=== PATIENT | male | born 1965 | race Caucasian/White ===

== ENCOUNTER 2020-03-09 01:08 | Emergency (ER) | payer MEDICAID ==
[~2020-03-09] VITALS: Ht 185.4 cm; Wt 129.3 kg
--- NOTE | 2020-03-09 01:12 | NUR ---
PT TAKEN TO BED 4 VIA [facility] WITH ASSISTANCE FROM EMS.
[2020-03-09 01:17] VITALS: BP 132/90
--- NOTE | 2020-03-09 01:42 | NUR ---
Dr. Rios at bedside for MSE.
[2020-03-09 01:46] LABS: BASOPHILS # (AUTO) 0.1 K/uL (0.00-0.22); BASOPHILS % (AUTO) 0.6 % (0.0-2.0); EOSINOPHILS % (AUTO) 0.2 % (0.0-4.0); HEMATOCRIT 42.6 % (36-52); HEMOGLOBIN 13.9 g/dL (12.0-18.0); LYMPHOCYTES # (AUTO) 1.1 K/uL (2.0-11.5); LYMPHOCYTES % (AUTO) 9.6 % (20.5-51.1); MEAN CORPUSCULAR HEMOGLOBIN 28 pg (27-31); MEAN CORPUSCULAR HGB CONC 33 g/dL (33-37); MEAN CORPUSCULAR VOLUME 86.5 fL (80-94); MONOCYTES % (AUTO) 8.4 % (1.7-9.3); NEUTROPHILS # (AUTO) 9.4 K/uL (1.8-7.7); NEUTROPHILS % (AUTO) 81.2 % (42.2-75.2); PLATELET COUNT (AUTO) 143 K/uL (140-450); RED BLOOD CELL COUNT(AUTO) 4.93 MIL/uL (4.20-6.10); RED CELL DISTRIBUTION WIDTH 16.6 % (11.6-13.7); WHITE BLOOD COUNT (AUTO) 11.6 K/uL (4.8-10.8)
--- NOTE | 2020-03-09 01:51 | NUR ---
Called Poison control, no actions needed at this time due to low dose of gabapentin taken. advised for labs, and blood alcohol. If LFT elevated, start acetylceistine.if Respiratory trending down, give Narcan.
[2020-03-09] MEDS ORDERED: ALBUTEROL SULFATE/IPRATROPIU 3 ML SOL IH ONE (01:55)
--- NOTE | 2020-03-09 02:02 | NUR ---
unable to urinate at this time. gave water to encourage urination.
--- NOTE | 2020-03-09 02:04 | NUR ---
called rt for abg and breathing tx.
--- NOTE | 2020-03-09 02:08 | NUR ---
see complete assessment.
--- NOTE | 2020-03-09 02:08 | NUR ---
RT AT BEDSIDE
[2020-03-09 02:10] LABS: ALBUMIN 3.7 g/dL (3.4-5.0); ANION GAP 13.6 (8-16); ASPARTATE AMINOTRANSFERASE 61 U/L (15-37); CARBON DIOXIDE 25.9 mmol/L (21-32); CHLORIDE 108 mmol/L (98-107); CREATININE 1.5 mg/dL (0.6-1.3); GFR ARICAN-AMERICAN 62 mL/min (>90); GLUCOSE 158 mg/dL (74-106); POTASSIUM 4.5 mmol/L (3.5-5.1); SODIUM SERUM 143 mmol/L (136-145); TOTAL BILIRUBIN 0.6 mg/dL (0.0-1.0); UREA NITROGEN, BLOOD 29 mg/dL (7-18)
--- NOTE | 2020-03-09 02:17 | NUR ---
RAD AT BEDSIDE
--- NOTE | 2020-03-09 02:17 | NUR ---
FREDY SWAB COLLECTED AND SENT TO LAB
[2020-03-09 02:22] LABS: ACETAMINOPHEN < 0.5 ug/ml (10-30); SALICYLATE < 2.8 mg/dL (2.8-20.0)
--- NOTE | 2020-03-09 02:30 | NUR ---
CHANGED PTS SOILED SHEETS. PLACED PT IN CLEAN GOWN. PT ATTEMPTED TO PROVIDE UA WITHOUT SUCCESS. PT IN BED LOCKED AND IN LOWEST POSITION, SIDE RAILS X2. CARIDAC MONIOR/PULSE OX IN PLACE.
--- NOTE | 2020-03-09 03:10 | NUR ---
PT UNABLE TO PROVIDE UA. ERMD MADE AWARE, STATED NO NEED TO STRAIGHT CATH.
--- NOTE | 2020-03-09 04:03 | NUR ---
PT IS A&O X4, ABLE TO MAKE DECISIONS AND WOULD LIKE TO TAKE A TAXI HOME.
--- NOTE | 2020-03-09 04:10 | NUR ---
CALLED [facility] FOR PT RIDE HOME, STATED HE HAS FUNDS TO PAY FOR A TAXI.
--- NOTE | 2020-03-09 04:22 | NUR ---
PT UNABLE TO FIND WALLET, TAXI RIDE CANCELED. HOUSE SUP MADE AWARE THAT PT NEEDS VOUCHER FOR TAXI RIDE.
--- NOTE | 2020-03-09 04:25 | NUR ---
Attempted to call patient's sister to come crab picker patient. Patient sister did not answer the phone.
--- NOTE | 2020-03-09 04:40 | NUR ---
Spoke to [facility], patient information given a taxi voucher.
--- NOTE | 2020-03-09 04:57 | NUR ---
Adelina bazan arranged with [facility] services.
[2020-03-09 06:30] VITALS: BP 143/93
--- NOTE | 2020-03-09 06:30 | NUR ---
Patient discharged with v/s stable. Written and verbal after care instructions given and explained. Patient verbalized understanding. Ambulatory with steady gait. All questions addressed prior to discharge. Advised to follow up with PMD.
== END 2020-03-09 06:30 | disposition home or self-care (01) ==
LOC: MED 01:08
DX: T42.6X2A Poisoning by other antiepileptic and sedative-hypnotic drugs, intentional self-harm, initial encounter (principal); E87.2 Acidosis; F17.210 Nicotine dependence, cigarettes, uncomplicated; F15.10 Other stimulant abuse, uncomplicated; Z71.6 Tobacco abuse counseling; Z20.828 Contact with and (suspected) exposure to other viral communicable diseases
CPT/HCPCS: 36415; 71045; 80053; 85025; 87426; 94640; 99291; G0480; G0482; 93005

== ENCOUNTER 2020-03-29 11:12 | Emergency (ER) | payer MEDICAID ==
[~2020-03-29] VITALS: Ht 185.4 cm; Wt 104.3 kg
[2020-03-29 11:12] VITALS: BP 136/84
[2020-03-29] MEDS ORDERED: PIPERACILLIN/TAZOBACTAM 3.375 GM in DEXTROSE 5% 50 ML IV STA (14:27)
[2020-03-29] MEDS ORDERED: HYDROcodone/APAP 10/325 MG 1 TAB TAB PO STA ×2 (14:27→18:31)
[2020-03-29] MEDS ORDERED: CLINDAMYCIN 900 MG in DEXTROSE 5% 100 ML IV STA (14:27)
[2020-03-29] MEDS ORDERED: VANCOMYCIN 1,000 MG in DEXTROSE 5% 250 ML IV ONE (14:30)
--- NOTE | 2020-03-29 14:57 | NUR ---
PT TAKEN TO US VIA W/C.
[2020-03-29 15:18] LABS: BASOPHILS # (AUTO) 0.1 K/uL (0.00-0.22); BASOPHILS % (AUTO) 0.6 % (0.0-2.0); EOSINOPHILS % (AUTO) 0.1 % (0.0-4.0); HEMOGLOBIN 13.1 g/dL (12.0-18.0); LYMPHOCYTES # (AUTO) 1.8 K/uL (2.0-11.5); LYMPHOCYTES % (AUTO) 11.7 % (20.5-51.1); MEAN CORPUSCULAR HEMOGLOBIN 28 pg (27-31); MEAN CORPUSCULAR HGB CONC 33 g/dL (33-37); MEAN CORPUSCULAR VOLUME 84.8 fL (80-94); MONOCYTES # (AUTO) 1.2 K/uL (0.8-1.0); MONOCYTES % (AUTO) 7.9 % (1.7-9.3); NEUTROPHILS # (AUTO) 12.1 K/uL (1.8-7.7); NEUTROPHILS % (AUTO) 79.7 % (42.2-75.2); PLATELET COUNT (AUTO) 327 K/uL (140-450); RED BLOOD CELL COUNT(AUTO) 4.72 MIL/uL (4.20-6.10); RED CELL DISTRIBUTION WIDTH 16.4 % (11.6-13.7); WHITE BLOOD COUNT (AUTO) 15.2 K/uL (4.8-10.8)
[2020-03-29 15:30] LABS: ANION GAP 13.1 (8-16); CARBON DIOXIDE 25.7 mmol/L (21-32); CREATININE 0.8 mg/dL (0.6-1.3); POTASSIUM 3.8 mmol/L (3.5-5.1)
--- NOTE | 2020-03-29 15:30 | NUR ---
54 y/o male presented to ED c/o right leg redness & swelling from calf to thigh x 1 - 2 days . 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 Pt states he has been injecting heroin into his leg this week and may have an infection. a/o x 4. RR even and unlabored. Observed redness and swelling to rt leg. Pt states he in unable to ambulate due to the 10/10 pain. pmh: IV drug use NKA
[2020-03-29 15:36] LABS: ALBUMIN 2.4 g/dL (3.4-5.0); TOTAL BILIRUBIN 0.8 mg/dL (0.0-1.0)
[2020-03-29] MEDS ORDERED: PIPERACILLIN/TAZOBACTAM 3.375 GM VIAL IV ONE (15:36)
[2020-03-29] MEDS ORDERED: HYDROcodone/APAP 10/325 MG 1 TAB TAB ONE (15:37)
[2020-03-29 15:49] LABS: PROTHROMBIN TIME 11.3 secs (10.8-13.4)
--- NOTE | 2020-03-29 15:55 | NUR ---
pt states he has already used the restroom and is unable to provide urine sample at this time. Pt has been provided urine specimen cup for encouragement of urine sample.
--- NOTE | 2020-03-29 16:01 | NUR ---
unable to obtain IV at this time. Dr. Manzo made aware - he will insert IV via US.
--- NOTE | 2020-03-29 16:05 | NUR ---
DELAY IN IV ANTIBIOTICS DUE TO NO IV ACCESS AT THIS TIME. ALEJANDRO MADE AWARE.
--- NOTE | 2020-03-29 16:15 | NUR ---
per ERMD ORDER PICC LINE FOR PT AT THIS TIME.
--- NOTE | 2020-03-29 16:22 | NUR ---
GEOFFREY VARGAS SWAB COLLECTED AND HANDED TO LAB,.
--- NOTE | 2020-03-29 18:00 | NUR ---
PT WAS UNABLE TO PROVIDE URINE - ERMD MADE AWARE.
--- NOTE | 2020-03-29 18:03 | NUR ---
PICC LINE INSERTION HAS BEEN ORDERED - PER [facility] THERE IS A BACKUP FOR PICC LINE INSERTION. ALEJANDRO MADE AWARE.
--- NOTE | 2020-03-29 18:20 | NUR ---
DR. LOPEZ AT CHAIR SIDE FOR MEDICAL EVALUATION.
--- NOTE | 2020-03-29 18:30 | NUR ---
PER ERMD - PT WILL BE DISCHARGED NO IV ANTIBIOTICS NEEDED. ERMD WILL ORDER IM ANTIBIOTCS AND PAIN MEDICATION AND THEN PATIENT WILL BE DISCHARGED.
[2020-03-29] MEDS ORDERED: CLINDAMYCIN 600 MG/4 ML VIAL IM STA (18:31)
[2020-03-29 19:08] VITALS: BP 135/85
--- NOTE | 2020-03-29 19:08 | NUR ---
Patient discharged with v/s stable. Written and verbal after care instructions given and explained. Patient alert, oriented and verbalized understanding of instructions. Ambulatory with steady gait. All questions addressed prior to discharge. ID band removed. Patient advised to follow up with PMD. Rx of AUGMENTIN, NORCO, CLINDAMYCIN, NARCAN given. Patient educated on indication of medication including possible reaction and side effects. Opportunity to ask questions provided and answered.
--- NOTE | 2020-03-29 19:08 | NUR ---
[facility] VOUCHER PROVIDED FOR PT TRANSPORTATION
== END 2020-03-29 19:08 | disposition home or self-care (01) ==
LOC: MED 11:12
DX: L03.115 Cellulitis of right lower limb (principal); F17.290 Nicotine dependence, other tobacco product, uncomplicated; F11.90 Opioid use, unspecified, uncomplicated; Z59.0 Homelessness
CPT/HCPCS: 36415; 80053; 82550; 83605; 85025; 85610; 85651; 86140; 86886; 86900; 86901; 87040; 87426; 93971; 96372; 99291; J3490; 99284; J2543

== ENCOUNTER 2021-04-15 21:43 | Emergency (ER) | payer MEDICAID ==
[~2021-04-15] VITALS: Ht 185.4 cm; Wt 104.3 kg
[2021-04-15 21:48] VITALS: BP 156/95
--- NOTE | 2021-04-15 21:48 | NUR ---
PT TO A/[facility] IN AMBULANCE FOR BED.
--- NOTE | 2021-04-15 23:13 | NUR ---
PT OFFLOADED TO [facility]
--- NOTE | 2021-04-16 02:36 | NUR ---
PT CLEARED FOR DISCHARGE BY DR. CHAMPAGNE. AT TIME OF DISCHARGE BY NOT FOUND IN LOBBY OR OUTSIDE. PT LEFT W/O INSTRUCTIONS.
== END 2021-04-16 02:36 | disposition home or self-care (01) ==
LOC: MED 21:43
DX: T40.1X1A Poisoning by heroin, accidental (unintentional), initial encounter (principal); E11.9 Type 2 diabetes mellitus without complications; Y92.89 Other specified places as the place of occurrence of the external cause
CPT/HCPCS: 99283

== ENCOUNTER 2023-08-20 20:24 | Emergency (ER) | payer MEDICAID ==
[~2023-08-20] VITALS: Ht 172.7 cm; Wt 83.9 kg
[2023-08-20 20:32] VITALS: BP 126/85; PULSE 99; RESP 16; O2SAT 95
[2023-08-20] MEDS ORDERED: cefTRIAXone 1,000 MG VIAL ONE (21:08)
[2023-08-20] MEDS: cefTRIAXone 1,000 MG in DEXT 5% MINI-BAG PLUS 50 ML IV ONE (21:29)
[2023-08-20] MEDS: NACL 0.9% 1,000 ML IV SCH (21:30)
[2023-08-20 21:42] LABS: BASOPHILS % (AUTO) 0.2 % (0.0-2.0); EOSINOPHILS # (AUTO) 0.3 K/uL (0-0.4); EOSINOPHILS % (AUTO) 2.5 % (0.0-4.0); HEMATOCRIT 22.7 % (36-52); HEMOGLOBIN 7.5 g/dL (12.0-18.0); LYMPHOCYTES # (AUTO) 1.5 K/uL (2.0-11.5); LYMPHOCYTES % (AUTO) 14.7 % (20.5-51.1); MEAN CORPUSCULAR HEMOGLOBIN 28 pg (27-31); MEAN CORPUSCULAR HGB CONC 33 g/dL (33-37); MEAN CORPUSCULAR VOLUME 82.6 fL (80-94); MONOCYTES # (AUTO) 0.9 K/uL (0.8-1.0); NEUTROPHILS # (AUTO) 7.3 K/uL (1.8-7.7); NEUTROPHILS % (AUTO) 73.6 % (42.2-75.2); PLATELET COUNT (AUTO) 276 K/uL (140-450); RED BLOOD CELL COUNT(AUTO) 2.75 MIL/uL (4.20-6.10); RED CELL DISTRIBUTION WIDTH 20.5 % (11.6-13.7)
[2023-08-20 21:50] LABS: ANION GAP 10.7 (8-16); CALCIUM 7.5 mg/dL (8.5-10.1); CARBON DIOXIDE 22.2 mmol/L (21-32); CREATININE 1.6 mg/dL (0.6-1.3); POTASSIUM 3.9 mmol/L (3.5-5.1)
[2023-08-20 22:03] LABS: LACTIC ACID 0.9 mmol/L (0.4-2.0)
[2023-08-20 22:08] LABS: APPEARANCE,URINE SLIGHTLY HAZY (CLEAR); BILIRUBIN,URINE NEGATIVE (NEGATIVE); BLOOD, URINE 3+ (NEGATIVE); COLOR,URINE YELLOW (YELLOW); LEUKOCYTE ESTERASE ,URINE TRACE (NEGATIVE); NITRITE, URINE NEGATIVE (NEGATIVE); PROTEIN,URINE 2+ (NEGATIVE); UGLUCOSE NEGATIVE (NEGATIVE); UROBILINOGEN,URINE 0.2 EU/dL (0.2 - 1)
[2023-08-20 22:10] LABS: RBC,URINE 20-50 /HPF (0-5)
[2023-08-20 22:11] LABS: BACTERIA,URINE 1+ /HPF (None Seen); MUCUS,URINE None Seen /LPF (None Seen); SQUAMOUS EPITHELIAL CELL,UR 0-3 (FEW) /LPF (0-3 (FEW)); WBC,URINE 0-5 /HPF (0-5)
[2023-08-20 22:51] VITALS: BP 103/109; PULSE 107; RESP 20; O2SAT 96
[2023-08-21] MEDS: HALOPERIDOL IM 5 MG/ML VIAL IM ONE (00:45)
[2023-08-21] MEDS: LORazepam 1 MG TAB PO ONE (08:53)
== END 2023-08-21 12:50 | disposition left against medical advice (07) ==
LOC: MED 20:24
DX: E11.621 Type 2 diabetes mellitus with foot ulcer (principal); K43.9 Ventral hernia without obstruction or gangrene; M21.962 Unspecified acquired deformity of left lower leg; I10 Essential (primary) hypertension; Z79.4 Long term (current) use of insulin; Z79.899 Other long term (current) drug therapy
CPT/HCPCS: 36415; 80048; 81001; 83605; 83880; 84484; 85025; 87040; 87086; 93005; 96365; 96372; 99284; J0696; J1630

== ENCOUNTER 2023-10-16 18:39 | Inpatient (IN) | payer MEDICAID ==
[~2023-10-16] VITALS: Ht 177.8 cm; Wt 113.4 kg
[2023-10-16 18:56] VITALS: BP 137/82; PULSE 108; RESP 25; TEMP 101.7; TEMP 97.3; O2SAT 92
[2023-10-16 19:00] VITALS: O2SAT 92
[2023-10-16] MEDS: ACETAMINOPHEN EXTRA STRENGTH 500 MG TAB PO ONE (19:32)
[2023-10-16] MEDS: NACL 0.9% 1,000 ML IV ONE (19:51)
[2023-10-16 20:07] LABS: BASOPHILS % (AUTO) 0.1 % (0.0-2.0); HEMOGLOBIN 7.5 g/dL (12.0-18.0); LYMPHOCYTES % (AUTO) 4.9 % (20.5-51.1); MEAN CORPUSCULAR HEMOGLOBIN 26 pg (27-31); MEAN CORPUSCULAR HGB CONC 31 g/dL (33-37); MEAN CORPUSCULAR VOLUME 81.7 fL (80-94); MONOCYTES # (AUTO) 0.6 K/uL (0.8-1.0); MONOCYTES % (AUTO) 3.1 % (1.7-9.3); NEUTROPHILS # (AUTO) 18.4 K/uL (1.8-7.7); NEUTROPHILS % (AUTO) 91.9 % (42.2-75.2); PLATELET COUNT (AUTO) 146 K/uL (140-450); RED BLOOD CELL COUNT(AUTO) 2.94 MIL/uL (4.20-6.10); RED CELL DISTRIBUTION WIDTH 16.6 % (11.6-13.7)
[2023-10-16 20:15] LABS: ANION GAP 10.2 (8-16); CALCIUM 7.2 mg/dL (8.5-10.1); CREATININE 1.2 mg/dL (0.6-1.3); POTASSIUM 3.2 mmol/L (3.5-5.1)
[2023-10-16 20:20] VITALS: O2SAT 96
[2023-10-16 20:28] LABS: LACTIC ACID 2.7 mmol/L (0.4-2.0)
[2023-10-16 20:30] LABS: ALANINE AMINOTRANSFERASE 11 U/L (12-78); ALBUMIN 1.7 g/dL (3.4-5.0); ALKALINE PHOSPHATASE 95 U/L (50-136); ASPARTATE AMINOTRANSFERASE 29 U/L (15-37); BILIRUBIN,DIRECT 0.6 mg/dL (0.0-0.3); TOTAL BILIRUBIN 0.8 mg/dL (0.0-1.0)
[2023-10-16 20:31] LABS: AMPHETAMINE, URINE POSITIVE ng/ml (NEG <=1000); BARBITURATE, URINE NEGATIVE ng/ml (NEG <=200)
[2023-10-16 20:32] LABS: BENZODIAZEPINE, URINE NEGATIVE ng/mL (NEG <=200); BILIRUBIN,URINE 1+ (NEGATIVE); BLOOD, URINE 3+ (NEGATIVE); CANNABINOID, URINE POSITIVE ng/mL (NEG <=50); COCAINE, URINE NEGATIVE ng/mL (NEG <=300); COLOR,URINE YELLOW (YELLOW); LEUKOCYTE ESTERASE ,URINE TRACE (NEGATIVE); NITRITE, URINE NEGATIVE (NEGATIVE); OPIATE, URINE POSITIVE ng/mL (NEG <=2000); PHENCYCLIDINE SCREEN,URINE NEGATIVE ng/mL (NEG <=25); PROTEIN,URINE 2+ (NEGATIVE); UGLUCOSE TRACE (NEGATIVE)
[2023-10-16 20:33] LABS: APPEARANCE,URINE SLIGHTLY CLOUDY (CLEAR)
[2023-10-16 20:35] LABS: BACTERIA,URINE 2+ /HPF (None Seen); ICTOTEST POSITIVE (NEGATIVE); RBC,URINE 11-20 (MOD) /HPF (0-5); SQUAMOUS EPITHELIAL CELL,UR 0-3 (FEW) /LPF (0-3 (FEW)); WBC,URINE 0-5 /HPF (0-5)
[2023-10-16 20:36] LABS: MUCUS,URINE None Seen /LPF (None Seen)
[2023-10-16 20:52] LABS: FLU A ANTIGEN negative (NEGATIVE); FLU B ANTIGEN NEGATIVE (NEGATIVE)
[2023-10-16] MEDS ORDERED: cefTRIAXone 1,000 MG VIAL ONE (21:09)
[2023-10-16] MEDS ORDERED: AZITHROMYCIN 500 MG INJ VIAL IV ONE (22:27)
[2023-10-16] MEDS: VANCOMYCIN 1,000 MG in DEXTROSE 5% 250 ML IV ONE (22:30)
[2023-10-16] MEDS ORDERED: VANCOMYCIN PER PHARMACY MC PRN (22:35)
[2023-10-16] MEDS ORDERED: MORPHINE SULFATE 2 MG/ML SYR IVP PRN (22:35)
[2023-10-16] MEDS ORDERED: ACETAMINOPHEN 325 MG TAB PO PRN (22:35)
[2023-10-16] MEDS ORDERED: HYDROcodone/APAP 5/325 MG 1 TAB TAB PO PRN (22:35)
[2023-10-16 22:39] VITALS: O2SAT 96
[2023-10-16] MEDS: POTASSIUM CHL 40 MEQ/ D5-1/2NS 1,000 ML IV ONE (22:40)
[2023-10-16] MEDS: AZITHROMYCIN 500 MG in DEXTROSE 5% 250 ML IV ONE (22:44)
[2023-10-16] MEDS ORDERED: VANCOMYCIN 1,000 MG VIAL ONE (23:34)
[2023-10-17 02:27] VITALS: O2SAT 98
[2023-10-17 07:30] VITALS: O2SAT 97
[2023-10-17 07:40] LABS: BASOPHILS % (AUTO) 0.2 % (0.0-2.0); EOSINOPHILS % (AUTO) 0.2 % (0.0-4.0); HEMATOCRIT 27.1 % (36-52); HEMOGLOBIN 8.3 g/dL (12.0-18.0); LYMPHOCYTES # (AUTO) 1.2 K/uL (2.0-11.5); LYMPHOCYTES % (AUTO) 7.1 % (20.5-51.1); MEAN CORPUSCULAR HEMOGLOBIN 26 pg (27-31); MEAN CORPUSCULAR HGB CONC 31 g/dL (33-37); MEAN CORPUSCULAR VOLUME 83.7 fL (80-94); MONOCYTES # (AUTO) 0.8 K/uL (0.8-1.0); MONOCYTES % (AUTO) 4.4 % (1.7-9.3); NEUTROPHILS # (AUTO) 15.2 K/uL (1.8-7.7); NEUTROPHILS % (AUTO) 88.1 % (42.2-75.2); PLATELET COUNT (AUTO) 133 K/uL (140-450); RED BLOOD CELL COUNT(AUTO) 3.23 MIL/uL (4.20-6.10); RED CELL DISTRIBUTION WIDTH 16.8 % (11.6-13.7); WHITE BLOOD COUNT (AUTO) 17.2 K/uL (4.8-10.8)
[2023-10-17 08:11] LABS: ALBUMIN 1.5 g/dL (3.4-5.0); ANION GAP 10.9 (8-16); CALCIUM 6.9 mg/dL (8.5-10.1); CARBON DIOXIDE 23.3 mmol/L (21-32); MAGNESIUM 1.8 mg/dL (1.8-2.4); PHOSPHORUS 2.8 mg/dL (2.5-4.9); POTASSIUM 3.2 mmol/L (3.5-5.1); TOTAL BILIRUBIN 0.6 mg/dL (0.0-1.0); TOTAL PROTEIN, SERUM 6.6 g/dL (6.4-8.2)
[2023-10-17 08:16] VITALS: BP 118/78; PULSE 62; RESP 20; TEMP 98.5; O2SAT 97
[2023-10-17] MEDS: ENOXAPARIN 40 MG/0.4 ML SYR SUBQ SCH (08:52)
[2023-10-17] MEDS ORDERED: VANCOMYCIN 1,500 MG in DEXTROSE 5% 500 ML IV SCH (10:00)
[2023-10-17] MEDS ORDERED: AZITHROMYCIN 250 MG TAB PO SCH (21:00)
== END 2023-10-17 10:40 | disposition left against medical advice (07) | DRG 720 ==
LOC: MED 18:39 → MMU 22:40 → MTU 10-17 03:11
PROVIDERS: ADMIT Student in an Organized Health Care Education/Training Program; ATTEND Student in an Organized Health Care Education/Training Program
DX: A41.9 Sepsis, unspecified organism (principal); E87.20 Acidosis, unspecified; E44.0 Moderate protein-calorie malnutrition; J18.9 Pneumonia, unspecified organism; I10 Essential (primary) hypertension; E11.9 Type 2 diabetes mellitus without complications; L03.818 Cellulitis of other sites; N39.0 Urinary tract infection, site not specified; Z20.822 Contact with and (suspected) exposure to COVID-19; Z53.29 Procedure and treatment not carried out because of patient's decision for other reasons; Z68.35 Body mass index [BMI] 35.0-35.9, adult
CPT/HCPCS: 36415; 71045; 80048; 80053; 80076; 80305; 81001; 83605; 83735; 83880; 84100; 84484; 85025; 87040; 93005; 96361; 96374; 96375; 99291; J0456; J0696; J3370; J7060; Q0092